=== PATIENT | female | born 1955 | race Caucasian/White ===

== ENCOUNTER 2024-06-28 09:35 | Emergency (ER) | payer MEDICARE, OTHER ==
[~2024-06-28] VITALS: Ht 160 cm; Wt 71.7 kg
[2024-06-28 10:27] VITALS: BP 123/78; PULSE 80; RESP 16; TEMP 98.3; O2SAT 95
--- NOTE | 2024-06-28 11:32 | DVH ---
EXAM: CT HEAD WITHOUT CONTRAST HISTORY: fall. r/o fracture. hematoma, bleed COMPARISON: None TECHNIQUE: Axial images of the head were obtained and reformatted in coronal and sagittal planes. All CT scans at this medical facility are performed using dose modulation techniques as appropriate t o a performed exam including the following: Automated exposure control was utilized; adjustment of th e MA and/or KV according to patient size; and use of iterative reconstruction technique. CT Dose: CTDI volume is 54.73 mGy. Dose-length product is 1393.88 mGy*cm FINDINGS: There is no evidence of acute intracranial hemorrhage, mass, mass effect midline shift. There is no h ydrocephalus or extra-axial fluid collection. Collazo-white matter differentiation is maintained. The visualized paranasal sinuses and mastoid air cells are clear. The calvarium is intact. IMPRESSION: 1. No acute intracranial process. HS:Y
--- NOTE | 2024-06-28 11:35 | DVH ---
EXAM: XY L ELBOW 3 VIEW XRAY HISTORY: fall. r/o fracture COMPARISON: None TECHNIQUE: Three views of the left elbow were performed. FINDINGS: No acute fracture or effusion are identified about the left elbow. No significant degenerat misael changes. IMPRESSION: 1. No acute fracture of the left elbow.
--- NOTE | 2024-06-28 11:35 | DVH ---
EXAM: XY R ELBOW 3 VIEW XRAY HISTORY: fall. r/o fracture COMPARISON: None TECHNIQUE: Three views of the right elbow were performed. FINDINGS: No acute fracture or effusion are identified about the right elbow. No significant degenerative mo ges. IMPRESSION: 1. Unremarkable radiographs of the right elbow.
--- NOTE | 2024-06-28 11:38 | DVH ---
CLINICAL HISTORY: Fall injury. COMPARISON: None TECHNIQUE: Axial CT images of the cervical spine were obtained without IV contrast. Coronal and sagit louis reformatted images were obtained. All CT scans at this medical facility are performed using dose modulation techniques as appropriate to a performed exam including the following: Automated exposure control was utilized; adjustment of the MA and/or KV according to patient size; and use of iterative reconstruction technique. CTDIvol = 16.82 mGy DLP = 420.05 mGy-cm FINDINGS: Bones: Mild reversal of the normal cervical lordosis. No significant spondylolisthesis. Vertebral bod y heights are maintained. Posterior elements are intact. No acute fracture. Multilevel severe disc sp radha narrowing in the cervical spine with associated endplate sclerosis and endplate spurring. Multile jessica facet and uncinate hypertrophy with associated moderate neural foraminal stenoses. Paraspinal soft tissues: Prevertebral and paraspinal soft tissues are unremarkable. Other: No other significant findings. IMPRESSION: 1. No evidence of acute fracture or spondylolisthesis in the cervical spine. 2. Reversal of the normal cervical lordosis, may be positional or due to muscle spasm. 3. Degenerative disc disease and facet/ uncinate disease in the cervical spine as detailed above.
[2024-06-28] MEDS ORDERED: METH-1181 PO (12:04)
[2024-06-28] MEDS ORDERED: LIDO5DIS21 TOP (12:04)
--- NOTE | 2024-06-28 12:04 | ED.PDOC ---
HPI (NEURO) HPI Comments This is pleasant 68-year-old female that presents after slipping on ice this morning. Reports slipping landing on her bilateral elbows head and neck. Pain is currently rated as moderate Denies persistent nausea Denies vomiting Denies thunderclap headache Denies photophobia, phonophobia Denies family history of brain issues persistent headaches Denies taking any blood thinner medication Denies vision/hearing changes Denies focal loss of strength/sensation or changes in speech Chief Complaint: Fall Injury Time Seen by MD: 10:10 Reviewed Notes: Nurses Notes, Medications, Allergies Information Source: Patient Mode of Arrival: Wheelchair Family History Family History: Reviewed,noncontributory to illness Social History Smoker: Non-Smoker Alcohol: Denies ETOH Use Drugs: Denies Drug Use All Other Systems: Reviewed and Negative (per hpi) Physical Exam General Appearance: No Apparent Distress, Normal HEENT: Head (Tenderness to the occipital lobe. No open wounds no hematoma), Normal ENT Inspection, Pharynx Normal, TMs Normal Neck: Normal, Other (TTP) Respiratory: Chest Non-Tender, Lungs Clear, No Accessory Muscle Use, No R espiratory Distress, Normal Breath Sounds Cardiovascular: No Murmur, No Gallop, Regular Rate/Rhythm Breast Exam: Deferred Gastrointestinal: No Organomegaly, Non Tender, No Pulsatile Mass, Normal Bowel Sounds, Soft Genitalia: Deferred Pelvic: Deferred Rectal: Deferred Extremities: No calf tenderness, Normal capillary refill, Normal inspection, Normal range of motion, Non-tender, No pedal edema Musculoskeletal : Apperance: Normal Neurologic: Alert, 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 Was a procedure done?: No Differential Diagnosis (SZ) Headache: Closed Head Injury, Intracerebral Hemorrhage, Subarachnoid Hem orrhage, Subdural Hemorrhage, Post-Traumatic X-Ray, Labs, Meds, VS Vital Signs Date Time Temp Pulse Resp B/P (MAP) Pulse Ox O2 Delivery O2 Flow Rate FiO2 06/28/24 10:27 98.3 80 16 123/78 (93) 95 98.3 06/28/24 10:27 80 16 95 Room Air 06/28/24 09:55 98.3 80 16 123/78 (93) 95 X-Ray, Labs, Meds, VS Comment The patient suffered a minor closed head injury. The following differential diagnoses were considered for this patient; subdural hematoma, subarachnoid hemorrhage, epidural hematoma, intraparenchymal bleed, herniation, skull fracture. The patient had a computed tomography of their head without any evidence of acute intracranial abnormality as per radiology. The patient is neurologically intact by exam and is able to ambulate without difficulty. A complete examination does not reveal any other related injury at this time. The patient is not currently utilizing any anticoagulants. The patient is advised to use t ylenol as needed for pain. The patient is instructed to follow up their primary care physician as needed or return to ER if vomiting or worsening headache occurs. The patient was counseled in regards to the diagnosis and management of the condition and verbalized understanding of this. Patient is stable for discharge at this time. External notes reviewed. Test results and diagnostic imaging interpreted. All diagnostic findings, discharge care, education and instructions provided Follow-up with PCP in 2 to 3 days Patient verbalized understanding and agreed to treatment plan Vital signs stable, afebrile, no acute distress noted Patient ambulatory with strong steady gait Advised to return precautions for any new or worsening symptoms, return to ER immediately for re-evaluation Patient is aware that the purpose of this visit was for an acute medical emergency requiring emergent stabilization. Chronic conditions, including malignancies have not been ruled out. Patient is instructed to follow up with PCP as directed and discharge instructions for continued care and workup. If unable to arrange follow-up, patient is to return to the emergency department for reassessment. Patient (parent or legal guardian if applicable) was given verbal and written discharge instructions and acknowledges understanding. Time of 1ST Reevaluation: 11:50 Reevaluation 1ST: Improved Patient Education/Counseling: Diagnosis, Treatment Family Education/Counseling: Diagnosis, Treatment Departure 1 Departure Time of Disposition: 11:51 Impression: Primary Impression: Fall Qualified Codes: W19.XXXA - Unspecified fall, initial encounter Additional Impressions: Minor head injury Qualified Codes: S09.90XA - Unspecified injury of head, initial encounter Cervicalgia Elbow pain, right Elbow pain, left Disposition: 01 HOME / SELF CARE / HOMELESS Condition: Fair e-Prescriptions Lidocaine (LIDODERM 5% TOPICAL PATCH) 1 Patch Ph 1 PATCH TOP DAILY for 30 Days, #30 PATCH 0 Refills Prov: PAYTON OGLESBY NP 06/28/24 Methocarbamol (Methocarbamol) 500 Mg Tab 500 MG PO QHSP PRN for 7 Days, #7 TAB 0 Refills Prov: PAYTON OGLESBY NP 06/28/24 Critical Care Note Critical Care Time?: No Stability Stability form required: No Heart Score Heart Score: Heart Score Response (Comments) Value History N/A 0 EKG N/A 0 Age N/A 0 Risk Factors N/A 0 Troponin N/A 0 Total 0 PAYTON OGLESBY NP Jun 28, 2024 12:04
== END 2024-06-28 12:14 | disposition home or self-care (01) ==
LOC: ER 09:35
DX: S09.90XA Unspecified injury of head, initial encounter (principal); M54.2 Cervicalgia; M25.521 Pain in right elbow; M25.522 Pain in left elbow; W00.0XXA Fall on same level due to ice and snow, initial encounter; Y93.89 Activity, other specified; Y92.89 Other specified places as the place of occurrence of the external cause; Y99.8 Other external cause status
CPT/HCPCS: 70450; 72125; 73080